=== PATIENT | male | born 2000 | race Two or more races ===

== ENCOUNTER 2025-02-24 19:09 | Emergency (ER) | payer OTHER ==
[~2025-02-24] VITALS: Ht 165.1 cm; Wt 65.8 kg
[2025-02-24] MEDS ORDERED: CEFTRIAXONE SODIUM 1,000 MG VIAL IM STA (20:08)
[2025-02-24] MEDS ORDERED: KETOROLAC TROMETHAMINE 30 MG VIAL IM STA (20:08)
== END 2025-02-24 20:36 | disposition home or self-care (01) ==
LOC: ER 19:09
DX: H60.91 Unspecified otitis externa, right ear (principal)